=== PATIENT | male | born 1965 | race African-American/Black ===

== ENCOUNTER 2020-07-29 09:32 | Outpatient (REF) | payer OTHER, SELFPAY ==
[2020-07-29 10:20] LABS: Hematocrit 45.8 % (42-52); Hemoglobin 14.9 g/dl (14.0-18.0); Mean Corpuscular HGB Conc 32.5 g/dl (31.0-36.0); Mean Corpuscular Hemoglobin 26.4 pg (27.0-33.0); Mean Corpuscular Volume 81.2 fL (80-98); Mean Platelet Volume 12.1 fL (9.4-12.4); Platelet Count 198 X10*3/uL (160-400); Red Blood Count 5.64 X10*6/uL (4.60-5.80); Red Cell Distribution Width 13.2 % (11.0-16.0); White Blood Count 4.4 X10*3/uL (4.8-10.8)
[2020-07-29 10:39] LABS: Glucose Urine UA NEG (NEG); Leukocyte Esterase Urine NEG (NEG); Nitrite Urine NEG (NEG); Specific Gravity - Urine 1.015 (1.005-1.025); Urine Blood NEG (NEG); Urine Ketones NEG (NEG); Urine Protein NEG (NEG-TRACE)
[2020-07-29 10:45] LABS: Appearance Urine CLEAR; Color Urine YELLOW
[2020-07-29 11:05] LABS: Bacteria Urine 1+ /LPF; Sperm Urine NOTED; Squamous Epithelial Cell Urine 1+ /LPF; WBC Urine 0 /HPF (0-4)
[2020-07-29 11:23] LABS: Alanine Aminotransferase 23 U/L (0-40); Albumin Level 4.8 g/dL (3.5-5.0); Alkaline Phosphatase 63 U/L (39-117); Anion Gap 12 (12-20); Aspartate Amino Transferase 19 U/L (5-37); Bilirubin Total 0.7 mg/dL (0.0-1.0); Blood Urea Nitrogen 11 mg/dL (9-16); Calcium 9.7 mg/dL (8.4-10.2); Carbon Dioxide 29 mmol/L (22-29); Chloride 102 mmol/L (96-108); Cholesterol 232 mg/dL; Estimated Glomerular Filt Rate > 60; Glucose Fasting 98 mg/dL (60-99); HDL Cholesterol 82 mg/dL; LDL Cholesterol Calculated 126 mg/dl; Potassium 4.5 mmol/L (3.3-5.1); Sodium 138 mmol/L (135-145); Total Protein 7.9 g/dL (6.5-8.0); Triglycerides 122 mg/dL
[2020-07-29 11:24] LABS: Vitamin D 25-OH Total 44.3 ng/mL (>30)
[2020-07-29 14:31] LABS: Folate 18.5 ng/mL (> or = 4.0); Vitamin B12 1002 pg/mL (200-900)
== END 2020-07-29 09:33 | disposition home or self-care (01) ==
LOC: HO.LAB 09:32
PROVIDERS: PCP Internal Medicine; Visit Provider Internal Medicine
DX: N40.0 Benign prostatic hyperplasia without lower urinary tract symptoms (principal); G30.9 Alzheimer's disease, unspecified; F02.80 Dementia in other diseases classified elsewhere, unspecified severity, without behavioral disturbance, psychotic disturbance, mood disturbance, and anxiety; E78.5 Hyperlipidemia, unspecified; E55.9 Vitamin D deficiency, unspecified; E03.9 Hypothyroidism, unspecified
CPT/HCPCS: 36415; 80053; 80061; 81001; 82306; 82607; 82746; 85027

== ENCOUNTER 2020-10-13 07:32 | Outpatient (REF) | payer OTHER, SELFPAY ==
[2020-10-13 12:01] LABS: Cholesterol 223 mg/dL; HDL Cholesterol 78 mg/dL; LDL Cholesterol Calculated 120 mg/dl; Triglycerides 125 mg/dL
[2020-10-13 12:24] LABS: TSH reflex Free T4 1.62 uIU/mL (0.32-4.0)
[2020-10-13 12:59] LABS: Folate 14.9 ng/mL (> or = 4.0); Vitamin B12 786 pg/mL (200-900)
== END 2020-10-13 07:33 | disposition home or self-care (01) ==
LOC: HO.HMGCLDS 07:32
PROVIDERS: PCP Internal Medicine; Visit Provider Internal Medicine
DX: E78.5 Hyperlipidemia, unspecified (principal); E03.9 Hypothyroidism, unspecified; N40.0 Benign prostatic hyperplasia without lower urinary tract symptoms; E51.9 Thiamine deficiency, unspecified
CPT/HCPCS: 36415; 80061; 82607; 82746; 84443

== ENCOUNTER → 2021-01-24 14:58 | Outpatient (BNVA) | payer OTHER, SELFPAY | PROVIDERS: PCP Internal Medicine; Visit Provider Urology | DX: N40.0 Benign prostatic hyperplasia without lower urinary tract symptoms (principal); E03.9 Hypothyroidism, unspecified; E78.5 Hyperlipidemia, unspecified; E53.8 Deficiency of other specified B group vitamins; E55.9 Vitamin D deficiency, unspecified | CPT/HCPCS: 51798 ==